=== PATIENT | male | born 1945 | race Caucasian/White ===

== ENCOUNTER 2023-09-15 10:28 | Emergency (ER) | payer OTHER ==
[~2023-09-15] VITALS: Ht 188 cm; Wt 86.2 kg
[~2023-09-15 10:28] MED LIST: AMLODIPINE2.5 MG PO; GLYBURID MCR3 MG PO; LISINOPRIL10 MG PO; LOPID600 MG PO
[2023-09-15 11:17] LABS: BASO% 0.5 % (0-3); EOS% 0.9 % (0-8); HEMATOCRIT 36.4 % (39.0-50.0); HEMOGLOBIN 12.6 g/dl (14.0-18.0); IMMATURE GRANULOCYTES 0.4 % (0.0-5.0); LYMPH% 21.8 % (15-41); MEAN CELL VOLUME 87.1 fL CALC (80.0-100.0); MEAN CORPUSCULAR HGB 30.1 pG CALC (26.0-32.0); MEAN CORPUSCULAR HGB CONC 34.6 g/dL CAL (32.0-36.0); MONO% 6.1 % (2-13); NEUT# 7.53 thou/uL (1.82-7.42); NEUT% 70.3 % (42-76); RED BLOOD COUNT 4.18 mill/uL (4.70-6.10); RED CELL DISTRI WIDTH 12.4 % (11.5-15.5)
[2023-09-15 11:25] LABS: ALBUMIN 4.6 g/dL (3.2-5.0); ALKALINE PHOSPHATASE 76 u/l (38-126); BUN 15 mg/dL (8-23); BUN/CREATININE RATIO 21 (12-20 (CALC)); CARBON DIOXIDE 25 mmol/l (22-30); CHLORIDE 102 mmol/l (95-108); CREATININE 0.7 mg/dL (0.7-1.3); ESTIMATED GFR 94 ML/MIN (>=90 (CALC)); ETHYL ALCOHOL 0 mg/dl (0-30); SGOT/AST 25 u/l (19-48); SODIUM 134 mmol/l (137-146); TOTAL PROTEIN 7.7 g/dL (6.3-8.2)
[2023-09-15 11:26] LABS: ANION GAP 11 (6-22 (CALC)); BILIRUBIN, TOTAL 0.8 mg/dL (0.2-1.3); POTASSIUM 3.7 mmol/l (3.5-5.1)
[2023-09-15] MEDS ORDERED: INSULIN REGULAR (HUMAN) 100 UNIT/ML INJ IV ONE (13:55)
[2023-09-15] MEDS ORDERED: SODIUM CHLORIDE 0.9% 1,000 ML IV ONE (13:55)
[2023-09-15 17:40] VITALS: BP 110/70
== END 2023-09-15 17:30 | DRG 880 ==
LOC: ED 10:28
PROVIDERS: Family Medicine
DX: R45.851 Suicidal ideations (principal); I10 Essential (primary) hypertension; E11.9 Type 2 diabetes mellitus without complications; Z79.84 Long term (current) use of oral hypoglycemic drugs; Z20.822 Contact with and (suspected) exposure to COVID-19

== ENCOUNTER 2023-10-07 11:14 | Emergency (ER) | payer OTHER ==
[2023-10-07] VITALS (12 sets, daily range): BP systolic 109–171; BP diastolic 53–83
[~2023-10-07] VITALS: Ht 188 cm; Wt 72.6 kg
[2023-10-07] MEDS ORDERED: SODIUM CHLORIDE 0.9% 1,000 ML IV ONE ×2 (11:35→12:20)
[2023-10-07 11:45] LABS: BASO% 0.6 % (0-3); EOS% 0.2 % (0-8); HEMATOCRIT 33.2 % (39.0-50.0); IMMATURE GRANULOCYTES 0.5 % (0.0-5.0); LYMPH% 15.7 % (15-41); MEAN CORPUSCULAR HGB 29.8 pG CALC (26.0-32.0); MEAN CORPUSCULAR HGB CONC 33.1 g/dL CAL (32.0-36.0); MONO% 14.3 % (2-13); NEUT# 4.33 thou/uL (1.82-7.42); NEUT% 68.7 % (42-76); RED BLOOD COUNT 3.69 mill/uL (4.70-6.10); RED CELL DISTRI WIDTH 13.9 % (11.5-15.5)
[2023-10-07 12:05] LABS: ALBUMIN 4.3 g/dL (3.2-5.0); BILIRUBIN, TOTAL 0.6 mg/dL (0.2-1.3); CREATININE 0.9 mg/dL (0.7-1.3); POTASSIUM 3.4 mmol/l (3.5-5.1); TOTAL PROTEIN 7.3 g/dL (6.3-8.2)
[2023-10-07 12:40] LABS: URINE BILIRUBIN - DIPSTICK Negative (NEGATIVE); URINE BLOOD DIPSTICK Small (NEGATIVE); URINE GLUCOSE - DIPSTICK Negative (NEGATIVE); URINE KETONE 15 mg/dL (NEGATIVE); URINE LEUK ESTERASE Negative (NEGATIVE); URINE NITRITE - DIPSTICK Negative (Negative); URINE PH 5.5 (4.5-8.0); URINE PROTEIN - DIPSTICK Negative (NEG-TRACE); URINE UROBILINOGEN - DIPSTICK 0.2 E.U./dL (0.2)
[2023-10-07 12:41] LABS: URINE COLOR Yellow
[2023-10-07 12:43] LABS: URINE RBC 0-2 RBC/hpf (0-5)
== END 2023-10-07 15:30 | disposition left against medical advice (07) | DRG 312 ==
LOC: ED 11:14
PROVIDERS: Emergency Medicine
DX: I95.1 Orthostatic hypotension (principal); E86.0 Dehydration; I10 Essential (primary) hypertension; E11.9 Type 2 diabetes mellitus without complications; Z53.29 Procedure and treatment not carried out because of patient's decision for other reasons; Z79.84 Long term (current) use of oral hypoglycemic drugs; Z91.81 History of falling